=== PATIENT | female | born 1970 | race Asian ===

== ENCOUNTER 2020-03-27 18:16 | Emergency (ER) | payer BC ==
[~2020-03-27] VITALS: Ht 170.2 cm; Wt 73.2 kg
[2020-03-27] MEDS ORDERED: ASPIRIN 81 MG TABLET CHEW PO ONE (18:30)
[2020-03-27] MEDS ORDERED: SODIUM CHLORIDE FLUSH 10ML SYR IVF ONE (18:30)
--- NOTE | 2020-03-27 18:43 | NUR ---
Pt to room from lobby.
--- NOTE | 2020-03-27 18:45 | NUR ---
AMBULATORY TO ED ROOM 7 W/ STEADY GAIT.
--- NOTE | 2020-03-27 18:47 | NUR ---
CXR AT BS
--- NOTE | 2020-03-27 18:56 | NUR ---
PT REPORT LT SIDED CP, STARTED EARLIER TODAY. REPORTS SHE EXPERIENCES PAIN WHEN SHE FEELS ANGRY. NO PAIN MED TAKEN. RESP EVEN & UNLABORED, SPEECH CLEAR, SKIN WNL. CARDIAC MONTITOR APPLIED: IVETH
[2020-03-27 19:01] VITALS: BP 109/57
[2020-03-27 19:11] LABS: BASOPHILS # (AUTO) 0.03 x10^3/uL (0-0.1); BASOPHILS % (AUTO) 0 % (0-1); EOSINOPHILS # (AUTO) 0.06 x10^3/uL (0-0.4); EOSINOPHILS % (AUTO) 1 % (1-7); LYMPHOCYTES # (AUTO) 1.61 x10^3/uL (1-3.4); LYMPHOCYTES % (AUTO) 24 % (22-44); MD NO; MEAN CORPUSCULAR HEMOGLOBIN 29.1 pg (27.0-34.8); MEAN CORPUSCULAR HGB CONC 35.2 g/dL (32.4-35.8); MEAN CORPUSCULAR VOLUME 82.6 fL (80-100); MEAN PLATELET VOLUME 8.3 fL (7.4-10.4); MONOCYTES # (AUTO) 0.19 x10^3/uL (0.2-0.8); MONOCYTES % (AUTO) 3 % (2-9); NEUTROPHILS # (AUTO) 4.89 x10^3/uL (1.8-6.8); NEUTROPHILS % (AUTO) 72 % (42-75); PLATELET COUNT 202 x10^3/uL (130-400); RED BLOOD COUNT 4.66 x10^6/uL (3.82-5.3); RED CELL DISTRIBUTION WIDTH 13.9 % (9.6-15.2)
[2020-03-27 19:21] LABS: ALBUMIN 3.8 g/dL (3.4-5.0); ANION GAP 10 mmol/L (5-15); CHLORIDE 104 mmol/L (98-107); CREATININE 0.87 mg/dL (0.55-1.02)
[2020-03-27 19:26] LABS: ALKALINE PHOSPHATASE 108 U/L (45-117); BILIRUBIN,TOTAL 0.9 mg/dL (0.2-1.0); TOTAL PROTEIN 7.8 g/dL (6.4-8.2); TROPONIN I < 0.015 ng/mL (0.000-0.045)
[2020-03-27 19:28] LABS: ALANINE AMINOTRANSFERASE 83 U/L (12-78)
--- NOTE | 2020-03-27 20:08 | NUR ---
AMBULATORY TO ROOM BR W/OUT INCIDENT; GAIT STEADY.
== END 2020-03-27 20:53 | disposition home or self-care (01) ==
LOC: ED 19:53
DX: R07.2 Precordial pain (principal); R06.02 Shortness of breath; E11.9 Type 2 diabetes mellitus without complications
CPT/HCPCS: 36415; 71045; 80053; 83690; 84484; 85025; 93005; 99285